=== PATIENT | female | born 1990 | race African-American/Black ===

== ENCOUNTER 2020-02-21 06:30 | Emergency (ER) | payer SELFPAY ==
[2020-02-21] MEDS ORDERED: Acetaminophen 500 MG TAB ONE (06:44)
== END 2020-02-21 07:08 | disposition home or self-care (01) ==
LOC: ERS 06:30
DX: J02.0 Streptococcal pharyngitis (principal); I10 Essential (primary) hypertension; F17.210 Nicotine dependence, cigarettes, uncomplicated
CPT/HCPCS: 87081; 87430; 99283

== ENCOUNTER 2020-08-21 11:17 | Emergency (ER) | payer SELFPAY ==
[2020-08-21] MEDS ORDERED: Boostrix 0.5 ML (Tdap) VIAL ONE (12:14)
== END 2020-08-21 13:21 | disposition home or self-care (01) ==
LOC: ERS 11:17
DX: S91.331A Puncture wound without foreign body, right foot, initial encounter (principal); I10 Essential (primary) hypertension; F17.210 Nicotine dependence, cigarettes, uncomplicated; X58.XXXA Exposure to other specified factors, initial encounter
CPT/HCPCS: 90471; 90715

== ENCOUNTER 2020-10-23 21:06 | Emergency (ER) | payer SELFPAY ==
[2020-10-23] MEDS ORDERED: Morphine 4 MG/ML VIAL ONE (21:23)
[2020-10-23] MEDS ORDERED: Ketorolac Tromethamine 30 MG/ML VIAL ONE (21:23)
[2020-10-23] MEDS ORDERED: Ondansetron PF 4 MG/2 ML Vial ONE (21:24)
[2020-10-23 22:06] LABS: BHCG - Serum Negative (NEGATIVE); Pregs Control Background? CLEAR/WHITE (CLR/WHITE); Pregs Control Bar Appear? YES (CONTROL BAR)
[2020-10-23 22:14] LABS: Hemoglobin 14.5 g/dL (12.0-16.0); Mean Corpuscular HGB CONC 31.4 g/dL (32.0-36.0); Mean Corpuscular Hemoglobin 29.5 pg (27.0-31.0); Mean Corpuscular Volume 93.9 fL (78.0-98.0); RBC Distribution Width 11.6 % (11.5-14.5); Red Blood Cell (RBC) Count 4.91 mill/uL (4.20-5.40); White Blood Cell (WBC) Count 6.9 thou/uL (4.8-10.8)
[2020-10-23 22:15] LABS: ALT (SGPT) 12 U/L (8-55); AST (SGOT) 13 U/L (5-34); Albumin 3.8 g/dL (3.5-5.0); Alkaline Phosphatase 48 U/L (40-110); Anion Gap 11 mmol/L (10-20); BUN (Urea Nitrogen) 13 mg/dL (7.0-18.7); Bilirubin, Total 0.2 mg/dL (0.2-1.2); Calc. Creatinine Clearance 0 mL/min (70-130); Calcium 8.3 mg/dL (7.8-10.44); Carbon Dioxide 21 mmol/L (22-29); Chloride 110 mmol/L (98-107); Globulin 2.7 g/dL (2.4-3.5); Glucose 124 mg/dL (70-105); Potassium 3.8 mmol/L (3.5-5.1); Protein, Total 6.5 g/dL (6.0-8.3); Sodium 138 mmol/L (136-145)
[2020-10-23 22:28] LABS: #Eosinphils 0.1 thou/uL (0.0-0.7); #Lymphocytes 1.7 thou/uL (1.20-3.40); #Monocytes 0.5 thou/uL (0.11-0.59); #Neutrophils 4.6 thou/uL (1.40-6.50); %Basophils 0.6 % (0.0-1.0); %Eosinophils 1.8 % (0.0-10.0); %Lymphocytes 24.7 % (21.0-51.0); %Monocytes 6.5 % (0.0-10.0); %Neutrophils 66.4 % (42.0-75.0); MDiff Complete? YES; Mean Platelet Volume 8.7 fL (7.4-10.4); Platelet Clumps SLIGHT; Platelet Count 156 thou/uL (130-400); Platelet Morphology Comment Appears Adequate
== END 2020-10-23 22:45 | disposition home or self-care (01) ==
LOC: ERS 21:06
DX: E86.0 Dehydration (principal); F17.210 Nicotine dependence, cigarettes, uncomplicated
CPT/HCPCS: 36415; 80053; 84703; 85025; 96374; 96375; J1885; J2270; J2405

== ENCOUNTER 2021-05-28 23:07 | Emergency (ER) | payer SELFPAY | END 2021-05-29 00:24 | disposition home or self-care (01) | LOC: ERS 23:07 | DX: K03.81 Cracked tooth (principal); K04.7 Periapical abscess without sinus; F17.200 Nicotine dependence, unspecified, uncomplicated | CPT/HCPCS: 99282 ==

== ENCOUNTER 2025-02-12 14:21 | Emergency (ER) | payer SELFPAY ==
[2025-02-12] MEDS ORDERED: Dexamethasone 10 MG/ML VIAL ONE (15:26)
[2025-02-12] MEDS ORDERED: Acetaminophen 500 MG TAB ONE (15:26)
[2025-02-12] MEDS ORDERED: Ketorolac Tromethamine 30 MG (1 mL) VIAL ONE (15:26)
== END 2025-02-12 15:40 | disposition home or self-care (01) ==
LOC: ERS 14:21
DX: J11.1 Influenza due to unidentified influenza virus with other respiratory manifestations (principal); F17.210 Nicotine dependence, cigarettes, uncomplicated
CPT/HCPCS: 87081; 87428; 87430; 96372; 99284; J1100; J1885

== ENCOUNTER 2025-04-27 08:15 | Emergency (ER) | payer MEDICAID, SELFPAY ==
[2025-04-27] MEDS ORDERED: valACYclovir 500 MG TAB ONE (08:56)
[2025-04-27] MEDS ORDERED: Ibuprofen 200 MG TAB ONE (08:56)
== END 2025-04-27 09:17 | disposition home or self-care (01) ==
LOC: ERS 08:15
DX: K64.4 Residual hemorrhoidal skin tags (principal); B00.9 Herpesviral infection, unspecified; F17.210 Nicotine dependence, cigarettes, uncomplicated
CPT/HCPCS: 99282